=== PATIENT | female | born 1995 | race Caucasian/White ===

== ENCOUNTER 2021-08-03 11:48 | Outpatient (RCR) | payer OTHER, SELFPAY ==
[2021-08-03 12:15] LABS: Basophils Percent Auto 0.3 % (0.2-1.2); Eosinophils Absolute Auto 0.2 K/mm3 (0-0.3); Eosinophils Percent Auto 1.3 % (0-4.4); Hematocrit 38.3 % (37.0-47.0); Hemoglobin 12.1 g/dL (12.0-15.0); Immature Granulocyte Absolute 0.07 K/mm3 (0.00-0.031); Immature Granulocyte Percent A 0.6 % (0-0.5); Lymphocytes Absolute Auto 2.36 K/mm3 (0.9-3.2); Lymphocytes Percent Auto 19.7 % (18.3-44.2); Mean Corpuscular HGB Conc 31.6 g/dl (32-36); Mean Corpuscular Hemoglobin 26.3 pg (26-34); Mean Corpuscular Volume 83.3 fl (80-100); Monocytes Absolute Auto 0.8 K/mm3 (0.1-0.6); Monocytes Percent Auto 6.8 % (2.6-8.5); Neutrophils Absolute Auto 8.6 K/mm3 (1.3-6.7); Neutrophils Percent Auto 71.3 % (45.5-73.1); Platelet Count Result 292 k/mm3 (150-375); Red Cell Distribution Width 14.6 % (11.5-14.5)
[2021-08-03 13:15] LABS: HIV 1/2 Ab P24 Ag Result Negative (Negative)
[2021-08-04] MEDS: RHO(D) IMMUNE GLOBULIN 300 MCG/2 ML SYRINGE IM (12:16)
== END 2021-11-01 23:59 | disposition home or self-care (01) ==
LOC: ANHLAB 11:48
PROVIDERS: Visit Provider Obstetrics & Gynecology
DX: Z29.13 Encounter for prophylactic Rho(D) immune globulin (principal); O36.0190 Maternal care for anti-D [Rh] antibodies, unspecified trimester, not applicable or unspecified; Z3A.00 Weeks of gestation of pregnancy not specified
CPT/HCPCS: 36415; 85025; 85461; 86703; 90384; 96372; G0432; J2790

== ENCOUNTER 2021-08-03 14:02 | Outpatient (CLI) | payer OTHER, SELFPAY ==
--- NOTE | ~2021-08-03 | US_ITS ---
EXAMINATION: US OB follow up DATE: 08/03/2021 15:07 INDICATION: Assess growth and amniotic fluid index. Routine care during early third t ester of . TECHNIQUE: Real-time ultrasound of the pelvis was performed. The interpreting radiologist was not pre sent for the study. COMPARISON: None. FINDINGS: There is a single living fetus in each presentation. The placenta is posterior and not low-lying wit h caudal margin 6.4 cm from the internal cervical os. heart rate is 152 beats per minute (bpm). The amniotic fluid index is 21.1 cm, which is normal (5th%-95%: 9.4-22.8 cm at 28 weeks estimated g estational age). The following biometric data were obtained: BPD: 6.9 cm -> 27 weeks 5 days Head circumference: 25.9 cm -> 28 weeks 1 days Abdominal circumference: 23.7 cm -> 28 weeks 0 days Femur length: 5.6 cm -> 29 weeks 2 days These measurements are concordant. Head circumference to abdominal circumference ratio: 1.09 (normal range 1.01-1.21). Estimated weight: 1231 g (+/-) 185 g or 2 lbs. 11 oz. (+/-) 7 oz. IMPRESSION: 1. Single living fetus in breech presentation with heart rate of 152 bpm. 2. Gestational age by ultrasound of 28 weeks 2 day(s) +/- 2 week(s) 0 day(s) with ultrasound estimate d date of delivery (MANAN) of 10/24/2021. Estimated weight is 38th percentile by Hadlock criteria w hen 10/23/2021 is used as the MANAN. Please correlate with clinical information or earlier ultrasounds fo r most accurate MANAN. 3. Normal amniotic fluid index of 21.1 cm . Reviewed, dictated and finalized at location A. IMPRESSION: 1. Single living fetus in breech presentation with heart rate of 152 bpm. 2. Gestational age by ultrasound of 28 weeks 2 day(s) +/- 2 week(s) 0 day(s) wi th ultrasound estimated date of delivery (MANAN) of 10/24/2021. Estimated radha ght is 38th percentile by Hadlock criteria when 10/23/2021 is used as the MANAN. Pl ease correlate with clinical information or earlier ultrasounds for most accura te MANAN. 3. Normal amniotic fluid index of 21.1 cm .
[2021-10-10 12:31] VITALS: BP 122/65; PULSE 79
== END 2021-08-03 14:03 | disposition home or self-care (01) ==
LOC: ANHIMG 14:05
PROVIDERS: PCP Obstetrics & Gynecology; Visit Provider Obstetrics & Gynecology
DX: Z34.92 Encounter for supervision of normal pregnancy, unspecified, second trimester (principal); Z3A.27 27 weeks gestation of pregnancy
CPT/HCPCS: 36415; 76816; 85025; 85461; 86703; G0432

== ENCOUNTER 2021-08-04 10:31 | Outpatient (CLI) | payer OTHER, SELFPAY ==
[2021-08-04 12:05] LABS: Glucose 1 Hour PP 50gm Dose 144 mg/dL
== END 2021-08-04 10:32 | disposition home or self-care (01) ==
LOC: ANHLAB 10:33
PROVIDERS: PCP Obstetrics & Gynecology; Visit Provider Obstetrics & Gynecology
DX: Z34.90 Encounter for supervision of normal pregnancy, unspecified, unspecified trimester (principal); Z3A.00 Weeks of gestation of pregnancy not specified
CPT/HCPCS: 36415; 82947

== ENCOUNTER 2021-08-13 09:55 | Outpatient (CLI) | payer OTHER, SELFPAY ==
[2021-08-13 10:32] LABS: Glucose 3 Hour Gest 107 mg/dL (>/=140)
[2021-08-13 12:21] LABS: Glucose Fasting Gestational 107 mg/dL (>/=95)
[2021-08-13 13:03] LABS: Glucose 2 Hour Gest 175 mg/dL (>/= 155)
[2021-08-13 13:31] LABS: Glucose 1 Hour Gest 192 mg/dL (>/=180)
[2021-08-13 15:36] LABS: Glucose 3 Hour Gest 98 mg/dL (>/=140)
== END 2021-08-13 09:56 | disposition home or self-care (01) ==
LOC: ANHLAB 09:58
PROVIDERS: PCP Obstetrics & Gynecology; Visit Provider Obstetrics & Gynecology
DX: O99.810 Abnormal glucose complicating pregnancy (principal); Z3A.00 Weeks of gestation of pregnancy not specified
CPT/HCPCS: 36415; 82951; 82952

== ENCOUNTER 2021-08-20 13:00 | Outpatient (RCR) | payer OTHER, SELFPAY ==
[2021-08-16 13:14] VITALS: BMI 44.5
[2021-08-16 13:16] VITALS: BMI 44.5
== END 2021-09-12 12:12 | disposition home or self-care (01) ==
LOC: ANHDMC 13:00
PROVIDERS: PCP Obstetrics & Gynecology; Visit Provider Obstetrics & Gynecology
DX: O24.419 Gestational diabetes mellitus in pregnancy, unspecified control (principal); Z3A.00 Weeks of gestation of pregnancy not specified; Z71.3 Dietary counseling and surveillance; Z71.89 Other specified counseling
CPT/HCPCS: 97802; G0108

== ENCOUNTER 2021-10-10 12:10 | Outpatient (RCR) | payer OTHER, SELFPAY ==
[2021-09-05 12:30] VITALS: BP 119/73; PULSE 95
[2021-09-12 10:32] VITALS: BP 122/64; PULSE 88
[2021-09-19 12:18] VITALS: BP 119/59; PULSE 80
--- NOTE | 2021-09-19 12:58 | PC.NURSE ---
BPP 05/27
[2021-09-26 14:56] VITALS: BP 118/71; PULSE 81
[2021-10-03 12:04] VITALS: BP 110/68; PULSE 80
--- NOTE | 2021-10-03 12:24 | PC.NURSE ---
BPP 05/27
--- NOTE | ~2021-10-10 | US_ITS ---
EXAMINATION: US OB BPP wo non-stress EXAM DATE: 10/03/2021 12:24 INDICATION: Gestational diabetes. 3rd trimester. TECHNIQUE: Pelvic obstetrical transabdominal sonogram was performed by a technologist. There are mu ltiple grayscale and Doppler images available for interpretation. Comparison is made to prior examina tion from 09/26/2021. FINDINGS: There is a single fetus identified in posterior presentation with a heart rate of 145 beats per minute. The placenta is located in the posterior position. There is no sonographic evidence of retroplacental hemorrhage identified. BIOPHYSICAL PROFILE (performed by the technologist) breathing (30 sec sustained breathing in 30 minutes): 2 out of 2 movement (3 gross body movements in 30 minutes): 2 out of 2 tone (one episode of onsqnuj-guvbboncq-rcxryzo limb movement): 2 out of 2 Amniotic fluid pocket (2 cm): 2 out of 2 Total score: 8 out of 8 IMPRESSION: 1. Single fetus with heart rate of 145 bpm. 2. Normal biophysical profile score of 8 out of 8. Reviewed, dictated and finalized at location B. RMATION ASSURANCE ANALYST
--- NOTE | ~2021-10-10 | US_ITS ---
EXAMINATION: US OB follow up w BPP DATE: 09/26/2021 15:29 INDICATION: Maternal gestational diabetes. Assess growth and biophysical profile during third t rimester of . TECHNIQUE: Real-time ultrasound of the pelvis was performed. The interpreting radiologist was not pre sent for the study. COMPARISON: 09/19/2021 FINDINGS: There is a single living fetus in vertex presentation. The placenta is posterior. heart rate i s 126 beats per minute (bpm). The amniotic fluid index is 14.7 cm, which is normal (5th%-95%: 7.7-24. 9 cm at 36 weeks estimated gestational age) . The following biometric data were obtained: BPD: 9.1 cm -> 36 weeks 6 days Head circumference: 32.4 cm -> 36 weeks 5 days Abdominal circumference: 32.1 cm -> 36 weeks 0 days Femur length: 7.1 cm -> 36 weeks 1 days These measurements are concordant. Head circumference to abdominal circumference ratio: 1.01 (normal range 0.92-1.07). Estimated weight: 2885 g (+/-) 433 g, 6 lbs 6 oz (+/-) 15 oz Biophysical profile performed by the technologist: breathing (30 sec sustained breathing in 30 minutes): 2 out of 2 movement (3 gross body movements in 30 minutes: 2 out of 2 tone (one episode of gokkzyb-mgwjwytbe-dbvumio limb movement): 2 out of 2 Amniotic fluid pocket (2 cm): 2 out of 2 Total score: 8 out of 8 IMPRESSION: 1. Single living fetus in vertex presentation. 2. Normal amniotic fluid index of 14.7 cm 3. Biophysical profile 8 out of 8. 4. Estimated weight is 54th percentile by Hadlock criteria when 10/23/2021 is used as the estima kiana date of delivery (MANAN). Please correlate with clinical information or earlier ultrasounds for mos t accurate MANAN. Reviewed, dictated and finalized at location B. AGE CALLER IMPRESSION: 1. Single living fetus in vertex presentation. 2. Normal amniotic fluid index of 14.7 cm 3. Biophysical profile 8 out of 8. 4. Estimated weight is 54th percentile by Hadlock criteria when 10/23/2021 is used as the estimated date of delivery (MANAN). Please correlate with clinica l information or earlier ultrasounds for most accurate MANAN.
--- NOTE | ~2021-10-10 | US_ITS ---
EXAMINATION: US OB follow up w BPP DATE: 09/12/2021 10:43 INDICATION: Maternal gestational diabetes during third trimester . TECHNIQUE: Real-time pelvic ultrasound was performed. The interpreting radiologist was not present fo r the study. COMPARISON: None. FINDINGS: There is a single living fetus in vertex presentation. The placenta is posterior. heart rate i s 163 beats per minute (bpm). Normal amniotic fluid index of 13.9 cm (5th%-95%: 8.1-24.8 cm at 34 wee ks estimated gestational age) Biophysical profile performed by the technologist: breathing (30 sec sustained breathing in 30 minutes): 2 out of 2 movement (3 gross body movements in 30 minutes): 2 out of 2 tone (one episode of kbwnauj-yjpugcpxi-gotvkiz limb movement): 2 out of 2 Amniotic fluid pocket (2 cm): 2 out of 2 Total score: 8 out of 8 IMPRESSION: 1. Single living fetus in vertex presentation with heart rate of 163 bpm. 2. Biophysical profile 8 out of 8. 3. Normal amniotic fluid index of 13.9 cm. Reviewed, dictated and finalized at location A. TARIAN
--- NOTE | ~2021-10-10 | US_ITS ---
EXAMINATION: US OB BPP wo non-stress DATE: 09/19/2021 13:01 COMB TENDER INDICATION: Gestational diabetes TECHNIQUE: Real-time transabdominal obstetric ultrasound. FINDINGS: 09/12/2021 There is a single living fetus in vertex presentation. The placenta is posterior without placenta pr evia. cardiac activity and movement is noted with a heart rate of 139 beats per minute. Biophysical profile: breathin of 2 movement: 2 of 2 tone: 2 of 2 Amniotic flud pocket: 2 of 2 Total score: 8 of 8 IMPRESSION: 1. Single living intrauterine in vertex presentation. 2: Total biophysical profile score of 8/8. Reviewed, dictated and finalized at location B. TENDER
--- NOTE | ~2021-10-10 | US_ITS ---
EXAMINATION: US OB limited w BPP DATE: 10/10/2021 13:27 INDICATION: Gestational diabetes. Third trimester. TECHNIQUE: Real-time pelvic ultrasound was performed. COMPARISON: Ultrasound 10/03/2021 FINDINGS: There is a single living fetus in vertex presentation. The placenta is right posterior. heart rate is 135 beats per minute (bpm). The amniotic fluid index is 16.1 cm, which is normal. Biophysical profile performed by the technologist: breathing (30 sec sustained breathing in 30 minutes): 2 out of 2 movement (3 gross body movements in 30 minutes): 2 out of 2 tone (one episode of plpgkro-xksauvuky-szbnxeh limb movement): 2 out of 2 Amniotic fluid pocket (2 cm): 2 out of 2 Total score: 8 out of 8 IMPRESSION: 1. Single living fetus in vertex presentation. 2. Biophysical profile 8 out of 8. Reviewed, dictated and finalized at location A. P PRESS OPERATOR
--- NOTE | ~2021-10-10 | US_ITS ---
EXAMINATION: US OB BPP wo non-stress EXAM DATE: 09/05/2021 12:29 INDICATION: Gestational diabetes. 3rd trimester. TECHNIQUE: Pelvic obstetrical transabdominal sonogram was performed by a technologist. There are mu ltiple grayscale and Doppler images available for interpretation. There are no earlier studies of th is gestation for comparison. FINDINGS: There is a single fetus identified in vertex presentation with a heart rate of 138 beats pe r minute. The placenta is located in the posterior position. There is no sonographic evidence of ret roplacental hemorrhage identified. BIOPHYSICAL PROFILE (performed by the technologist) breathing (30 sec sustained breathing in 30 minutes): 2 out of 2 movement (3 gross body movements in 30 minutes): 2 out of 2 tone (one episode of xrfmqxx-obynxrvnt-bzxdmbv limb movement): 2 out of 2 Amniotic fluid pocket (2 cm): 2 out of 2 Total score: 8 out of 8 IMPRESSION: 1. Single fetus with heart rate of 138 bpm. 2. Normal biophysical profile score of 8 out of 8. Reviewed, dictated and finalized at location B. NG INSPECTOR
[2021-10-10 12:43] VITALS: BP 122/65; PULSE 80
--- NOTE | 2021-10-10 13:33 | PC.NURSE ---
BPP 8, [place] 16.1
== END 2021-11-01 09:49 | disposition home or self-care (01) ==
LOC: ANHOBOP 12:10
PROVIDERS: PCP Obstetrics & Gynecology; Visit Provider Obstetrics & Gynecology
DX: O24.419 Gestational diabetes mellitus in pregnancy, unspecified control (principal); Z3A.33 33 weeks gestation of pregnancy; Z3A.34 34 weeks gestation of pregnancy; Z3A.35 35 weeks gestation of pregnancy; Z3A.36 36 weeks gestation of pregnancy; Z3A.37 37 weeks gestation of pregnancy; Z3A.38 38 weeks gestation of pregnancy
CPT/HCPCS: 59025; 76815; 76816; 76819

== ENCOUNTER 2021-10-16 17:04 | Inpatient (IN) | payer OTHER, SELFPAY ==
[2021-10-16] VITALS (10 sets, daily range): BP systolic 110–126; BP diastolic 53–90; PULSE 72–86; RESP 18; TEMP 36.6; BMI 45.5
--- NOTE | 2021-10-16 17:46 | LDADM ---
This patient, Abigail Camarena, was admitted to Labor/Delivery/Recovery 108 on 10/16/21 at 17:04. Plans for labor, pain management and were discussed with patient. Patient/family oriented to hospital policies and general routines including ID bracelet, bed and alarms, visiting hours, pain management, procedures, bathroom and other care routines, personal items, smoking policy, room service/diet and guest tray routines, security routines, and visiting hours. Patient/Family are encouraged to report perceived risks to care and to ask questions if they do not understand what they are told or what they should do. See OBIX for further documentation.
[2021-10-16 17:59] LABS: Basophils Percent Auto 0.2 % (0.2-1.2); Eosinophils Percent Auto 0.4 % (0-4.4); Hematocrit 38.7 % (37.0-47.0); Hemoglobin 12.5 g/dL (12.0-15.0); Immature Granulocyte Absolute 0.06 K/mm3 (0.00-0.031); Immature Granulocyte Percent A 0.5 % (0-0.5); Lymphocytes Absolute Auto 2.18 K/mm3 (0.9-3.2); Lymphocytes Percent Auto 19.8 % (18.3-44.2); Mean Corpuscular HGB Conc 32.3 g/dl (32-36); Mean Corpuscular Hemoglobin 25.7 pg (26-34); Mean Corpuscular Volume 79.6 fl (80-100); Mean Platelet Volume 9.6 fl (7.4-10.4); Monocytes Absolute Auto 0.7 K/mm3 (0.1-0.6); Monocytes Percent Auto 6.7 % (2.6-8.5); Neutrophils Percent Auto 72.4 % (45.5-73.1); Nucleated Red Blood Cells Perc 0.2 % (0.0-0.2); Platelet Count Result 316 k/mm3 (150-375); Red Blood Count 4.86 M/mm3 (4.2-5.4)
[2021-10-16] MEDS: DINOPROSTONE 10 MG VAG INSERT VAGINAL (18:25)
[2021-10-16 18:57] LABS: Glucose Point of Care 85 mg/dl (65-105)
[2021-10-16] MEDS: ACETAMINOPHEN 500 MG TABLET 1000 MG PO (23:16)
[2021-10-17] VITALS (74 sets, daily range): BP systolic 86–140; BP diastolic 42–98; PULSE 71–112; RESP 16–20; TEMP 36.2–37.2; O2SAT 95–100
[2021-10-17 00:11] LABS: Glucose Point of Care 158 mg/dl (65-105)
[2021-10-17 06:00] LABS: Glucose Point of Care 91 mg/dl (65-105)
--- NOTE | 2021-10-17 06:20 | WPDANESEPP ---
Anes - Eval Pre Procedure Procedure: labor epidural Date/Time: 10/17/21 06:20 Surgeon: hazel Preop Diagnosis: pain during labor Pre Op Diagnosis: Induction of Labor Patient Data Age: 26 Gender: F Height: 1.68 m Weight: 128 kg Last Vital Signs Temp 36.8 C 10/17/21 04:54 Pulse 77 10/17/21 04:54 Resp 18 10/16/21 18:47 BP 112/63 10/17/21 04:54 Allergies Allergy/AdvReac Type Severity Reaction Status Date / Time No Known Allergies Allergy Verified 10/10/21 11:06 Home Medications Medication Instructions Recorded Confirmed Type aspirin 81 mg chewable tablet 81 mg PO DAILY 07/04/21 10/16/21 History docosahexaenoic acid 200 mg capsule 1 mg PO DAILY 07/04/21 10/16/21 History metformin 500 mg tablet 1,000 mg PO DAILY #60 tablet 09/17/21 10/16/21 Rx Laboratory Tests 10/16/21 10/16/21 10/16/21 17:42 17:42 17:42 WBC 11.0 K/mm3 H K/mm3 (4.5-10.0) RBC 4.86 M/mm3 M/mm3 (4.2-5.4) Hgb 12.5 g/dL g/dL (12.0-15.0) Hct 38.7 % % (37.0-47.0) MCV 79.6 fl L fl (80-100) MCH 25.7 pg L pg (26-34) MCHC 32.3 g/dl g/dl (32-36) RDW 15.0 % H % (11.5-14.5) Plt Count 316 k/mm3 k/mm3 (150-375) MPV 9.6 fl fl (7.4-10.4) Immature Gran % (Auto) 0.5 % % (0-0.5) Neut % (Auto) 72.4 % % (45.5-73.1) Lymph % (Auto) 19.8 % % (18.3-44.2) [place] % (Auto) 6.7 % % (2.6-8.5) Eos % (Auto) 0.4 % % (0-4.4) Baso % (Auto) 0.2 % % (0.2-1.2) Lymph # (Auto) 2.18 K/mm3 K/mm3 (0.9-3.2) [place] # (Auto) 0.7 K/mm3 H K/mm3 (0.1-0.6) Eos # (Auto) 0.0 K/mm3 K/mm3 (0-0.3) Baso # (Auto) 0.0 K/mm3 K/mm3 (0.0-0.1) Abs Immat Gran (auto) 0.06 K/mm3 H K/mm3 (0.00-0.031) Absolute Neuts (auto) 8.0 K/mm3 H K/mm3 (1.3-6.7) Absolute Nucleated RBC 0.0 K/mm3 K/mm3 (0.0-0.012) Nucleated RBC % 0.2 % % (0.0-0.2) POC Capillary Glucose RPR Pending Blood Type B Negative Antibody Screen Positive Antibody Identification Passive Due to RH Imm Glob Antigen Identification Cancelled RENE, IgG Interpret Not Performed RENE, Poly Interpret Neg RENE, Complement Interp Not Performed 10/16/21 10/17/21 10/17/21 18:54 00:05 05:57 WBC RBC Hgb Hct MCV MCH MCHC RDW Plt Count MPV Immature Gran % (Auto) Neut % (Auto) Lymph % (Auto) [place] % (Auto) Eos % (Auto) Baso % (Auto) Lymph # (Auto) [place] # (Auto) Eos # (Auto) Baso # (Auto) Abs Immat Gran (auto) Absolute Neuts (auto) Absolute Nucleated RBC Nucleated RBC % POC Capillary Glucose 85 mg/dl mg/dl 158 mg/dl H mg/dl 91 mg/dl mg/dl (65-105) (65-105) (65-105) RPR Blood Type Antibody Screen Antibody Identification Antigen Identification RENE, IgG Interpret RENE, Poly Interpret RENE, Complement Interp Patient hx anesthesia problems: none Family hx anesthesia problems: none Results Review: All pre-operative results and documents have been reviewed as part of the pre-operative evaluation. [facility] Past Medical History Medical History (Updated 10/17/21 @ 06:21 by Keke Feliz CRNA) Gestational diabetes mellitus (GDM) affecting second Morbid obesity with BMI of 40.0-44.9, adult Vaginal delivery x1 Family History Family History Mother Hypertension Thyroid disorder Grandparent Breast can
[2021-10-17] MEDS: OXYTOCIN 30 UNITS/NS 500 ML 30 UNITS/500 ML BAG IV CONT (07:57)
[2021-10-17] MEDS: LACTATED RINGERS 1,000 ML 125 ML IV CONT ×2 (07:57→12:28)
--- NOTE | 2021-10-17 08:36 | PM.IMHP ---
H&P: HPI History of Present Illness Date/Time: 10/17/21 08:36 Patient is a 26-year-old LMP 01/16/2021 currently 39 weeks 1 day gestation with MANAN 10/23/2021 who presented to Labor and delivery for scheduled induction of labor secondary to gestational diabetes. Patient was diagnosed with gestational diabetes and started on Metformin. Patient also has a history of preeclampsia or in previous and is currently on low-dose aspirin. In general, she reports feeling well. Denies any vaginal bleeding or leakage of fluid. Reports occasional contractions and good movement. Chief Complaint: Intrauterine at 39w gestation Gestational diabetes Obesity Review of Systems Review of Systems: All systems reviewed & are unremarkable except as noted in HPI and below Constitutional: Constitutional: Reports as per HPI, Reports no additional constitutional complaints, Denies chills, Denies fever(s), Denies headache(s) and Denies night sweats Eyes: Eyes: Reports as per HPI and Reports no additional eye complaints ENT: Reports system reviewed and no additional complaints, except as documented, Reports as per HPI, Reports Normal hearing present and Denies headache(s) Cardiovascular: Cardiovascular: Reports as per HPI, Reports no additional cardiovascular complaints, Denies chest pain and Denies dyspnea Respiratory: Respiratory: Reports as per HPI, Reports no additional respiratory complaints, Denies cough and Denies dyspnea Gastrointestinal: Gastrointestinal: Reports as per HPI, Reports no additional gastrointestinal complaints, Denies abdominal pain, Denies change in bowel habits, Denies change in stool character, Denies nausea and Denies vomiting Genitourinary: Genitourinary: Reports no additional female genitourinary complaints, Reports as per HPI, Denies abnormal vaginal bleeding, Denies genital lesions, Denies hot flashes, Denies dyspareunia, Denies pelvic pain, Denies sexual dysfunction, Denies urinary incontinence, Denies vaginal discharge, Denies vaginal dryness and Denies vaginal odor Musculoskeletal: Musculoskeletal: Reports no additional musculoskeletal complaints and Reports as per HPI Integumentary/Breasts: Skin/Breast: Reports system reviewed and no additional complaints, except as docu, Reports as per HPI, Denies breast pain and Denies nipple discharge Neurologic: Reports system reviewed and no additional complaints, except as documented, Reports as per HPI, Reports Normal hearing present and Denies headache(s) Psychiatric: Psychiatric: Reports no additional psychiatric complaints, Reports as per HPI, Denies anxiety and Denies depression Endocrine: Endocrine: Reports no additional endocrine complaints and Reports as per HPI Hematologic/Lymphatic: Hematologic/Lymphatic: Reports no additional hematologic/lymphatic complaints and Reports as per HPI Allergic/Immunologic: Allergic/Immunologic: Reports no additional allergic/immunologic complaints and Reports as per HPI [facility] Past Medical History Medical History Gestational diabetes mellitus (GDM) affecting second Morbid obesity with BMI of 40.0-44.9, adult Vaginal delivery x1 Family History Family History Mother Hypertension Thyroid disorder Grandparent Breast cancer Throat cancer Alcoholism Diabetes mellitus Social History Social History Smoking status: Never smoker Alcohol intake: never Substance use: never Spiritual care concerns: No Meds Home Medications and Allergies Home Medications Medication Instructions Recorded Confirmed Type aspirin 81 mg chewable tablet 81 mg PO DAILY 07/04/21 10/16/21 History docosahexaenoic acid 200 mg capsule 1 mg PO DAILY 07/04/21 10/16/21 History metformin 500 mg tablet 1,000 mg PO DAILY #60 tablet 09/17/21 10/16/21 Rx Allergies
[2021-10-17] MEDS: fentaNYL CITRATE INJ (*CRX) 100 MCG/2 ML VIAL 50 MCG IV PUSH ×2 (09:09→10:59)
[2021-10-17 09:58] LABS: Glucose Point of Care 88 mg/dl (65-105)
[2021-10-17] MEDS: fentaNYL CITRATE INJ (*CRX) 100 MCG/2 ML VIAL IV PUSH (12:03)
--- NOTE | 2021-10-17 12:44 | WPDHPUPDATE1 ---
History and Physical Update Update Date/Time: 10/17/21 12:44 History and Physical has been reviewed, including an updated exam of the patient. There are NO changes in the patient's condition. Risks, benefits, and alternatives have been discussed and questions answered. Patient agrees to proceed with procedure.
[2021-10-17 13:06] LABS: Rapid Plasma Reagin Non-Reactive (NonReactive)
[2021-10-17 14:08] LABS: Glucose Point of Care 92 mg/dl (65-105)
[2021-10-17] MEDS: OXYTOCIN 30 UNITS/NS 500 ML 30 UNITS/500 ML BAG 125 UNITS IV CONT (15:26)
--- NOTE | 2021-10-17 16:45 | P.PCNOB_ITS ---
OB - Delivery Note Procedure Delivery date: 10/17/21 Procedure: Patient is 26-year-old now who presented to labor and delivery on 10/16/2021 at 39 weeks gestation for a scheduled induction of labor secondary to gestational diabetes. Patient was admitted to labor and delivery where induction of labor was begun with Cervidil. Initial cervical exam was approximately 2 cm dilated. Cervidil remained in place for approximately 12 hours after which time was removed. Pitocin was started for labor augmentation. Artificial rupture of membranes was performed at 8:21 am. Clear amniotic fluid was noted. Patient was approximately 3 cm dilated at this time. Pitocin was continuously titrated throughout the morning and afternoon. Patient became uncomfortable and requested an epidural for pain management which was placed without difficulty. An IUPC was also placed for enhanced monitoring. Patient made progressive cervical change and was noted to be fully dilated at 1:36 p.m. Patient was encouraged to push and found to be pushing well. She was prepped and draped for delivery. At 2:40 p.m., patient delivered head atraumatically without difficulty in OLIVE presentation. Occiput restituted to maternal right side. With subsequent push, the 's neck, shoulders, and rest of body delivered without difficulty. The infant was crying spontaneously. 's nose and mouth were suctioned with bulb suction. The was placed on maternal abdomen where care was assumed by waiting nursing staff. Delayed cord clamp was performed for approximately 60 seconds. The infant voided spontaneously. The cord was clamped and cut. A segment of cord was collected for cord gases. Cord blood was collected. The placenta was delivered spontaneously and intact. Uterine fundus was noted to be firm with massage. On inspection, a first-degree perineal laceration was noted. This laceration was repaired with 2-0 Vicryl in the usual fashion. Excellent hemostasis was noted. Estimated blood loss for entire delivery was 150 cc. The infant was a live-born male , Apgars 9 and 9, weighing at 7 lbs 5 oz. Both mother and baby doing well at end of delivery. events: Gestational Diabetes and Labor Induction Induction method: per cervidil protocol Delivery augmentation: rupture of membranes and pitocin Delivery monitor: external FHT, external uterine and internal uterine Route of delivery: Laceration Description: Perineal - 1st Degree Delivery repair: vicryl (2-0 vicryl) Specimen: Yes (placenta and cord, cord blood and cord gases) Quantitative Blood Loss (ml): 150 Anesthesia type: Epidural Disposition: floor Complications: No immediate complications [place] Baby Date of : 10/17/21 Time of : 14:40 Weeks of gestation at delivery: 39 (39.1) Infant gender: Male Weight (pounds): 7 Weight (ounces): 5 presentation: vertex position: Right Occiput Anterior Placenta delivery description: Spontaneous cord vessel description: 3 Vessels and Delayed Cord Clamping score one minute: 9 score five minutes: 9 AMG Delivery Billing Delivery Delivery: Delivery Charge
[2021-10-17] MEDS: WITCH HAZEL 40 PADS 1 PAD TOPICAL (17:20)
[2021-10-17] MEDS: BENZOCAINE 20% AER SPR (*SP) 56 GM CAN 1 SPRAY TOPICAL (17:20)
--- NOTE | 2021-10-17 17:59 | OBPPTRN ---
Patient transferred to post room #279 via wheelchair. Support person present. Oriented to unit, room, information board, rooming in, admission packet and security measures. Patient verbalizes understanding.
[2021-10-17] MEDS: IBUPROFEN 600 MG TABLET PO (19:39)
[2021-10-18 03:20] VITALS: BP 112/73; PULSE 86; RESP 16; TEMP 36.4; O2SAT 98
[2021-10-18] MEDS: IBUPROFEN 600 MG TABLET PO ×3 (03:28→17:25)
[2021-10-18 04:55] LABS: Hematocrit 35.3 % (37.0-47.0); Hemoglobin 11.3 g/dL (12.0-15.0)
[2021-10-18] MEDS: MULTIVIT/MIN/PREN/FOL AC/IRON TABLET 1 TAB PO (07:29)
[2021-10-18] MEDS: DOCUSATE SODIUM 100 MG CAPSULE PO (07:29)
[2021-10-18 08:00] VITALS: BP 105/64; PULSE 66; RESP 18; TEMP 36.3; O2SAT 98
--- NOTE | 2021-10-18 08:30 | PC.NURSE ---
Consult with pt., mother reports she is attempting to breast a few minutes, then supplementing due to infant not latching. Mother reports she had difficulties with first child and pumped and bottle fed for a few months then switched to formula. Mother states she has inverted nipples that do not stay firm, she has the nipple shield and latch assist at bedside. Offered to assist with latch next feeding. Mother states she has not decided if she will continue to attempt or pump and bottle feed. Reviewed breast pump care and usage, pumping schedule, nipple care, and collection and storage of breast milk. Encouraged [id number], breast massage and manual expression to stimulate supply. Requested mother call out next feeding to assess flange size. Nipple care reviewed of lanolin before pumping, warm compresses/massage a few minutes before. Discussed colostrum vs milk supply and mother may not see more than a few drops the first few days, milk should transition in by day 3 and she may see more volume pumped per session.
[2021-10-18 11:54] VITALS: BP 106/65; PULSE 87; RESP 18; TEMP 36.5; O2SAT 98
--- NOTE | 2021-10-18 12:13 | PM.OBPNVD ---
OB - PN: Subj Subjective Date/time seen: 10/18/21 12:13 Patient doing well. Reports feeling tired. Pain well controlled with medication. Minimal-moderate lochia. Ambulating without difficulty. OB - PN: Obj Data Labs CBC & Chem 7: 10/18/21 03:32 Labs: Laboratory Results - last 24 hr 10/16/21 10/17/21 10/18/21 17:42 14:05 03:32 Hgb 11.3 L Hct 35.3 L POC Capillary Glucose 92 RPR Non-reactive OB - PN A/P Assessment and Plan (1) Normal spontaneous vaginal delivery: Code(s): O80 - Encounter for full-term uncomplicated delivery Status: Acute Assessment and Plan: PPD#1 doing well continue routine care pt would like to be dc'd home pending circ and clearance no BP issues currently, however, has hx of Pre-E in prior emergency precautions reviewed pt and inquiring about taking BP at home offered to try sending in Rx for BP cuff, will attempt to do so all questions and concerns addressed may f/u in office in approx. 4 weeks for visit or sooner if necessary Time Spent With Patient Time: Total time spent is greater than 50% in coordination of care (as documented) at patient's floor/unit and/or counseling patient: Exam Const: General: cooperative, healthy appearing, comfortable and no acute distress GI: Inspection: non-distended and obesity GI Palp: Yes Soft to palpation and No Tenderness to palpation present (GI) Other: unable to palpate fundus due to body habitus Extrem: Right lower extremity: no edema Left lower extremity: no edema Other: no calf tenderness Psych: Appearance: grossly normal Mental Status: mental status grossly normal
--- NOTE | 2021-10-18 14:27 | PC.NURSE ---
Patient instructed to view the discharge video Mother & Baby Care, The First Two Weeks online. Patient was given the opportunity and encouraged to ask questions. Patient verbalized understanding of information shared and has been given the mother/baby guide for home reference.
--- NOTE | 2021-10-18 15:01 | PM.OBDSVD ---
DS: Admitting Diagnosis Discharge Date 10/18/21 Admitting Diagnosis Intrauterine at 39 weeks Gestational diabetes OB - DS: Summary OB Procedures : None OB Procedures Intrapartum: Spontaneous Vag Delivery OB Procedures: : None Time Spent with Patient Time attestation: Total time spent providing and/or coordinating discharge services: DS: Data Data Completed and Pending Labs on day of discharge: Labs from last 24 hours 10/18/21 03:32 Hgb 11.3 L Hct 35.3 L Discharge Plan Discharge Attending physician on discharge: Criss Summers Discharging Clinician: Criss Summers Anticipated Discharge Date/Time: 10/18/21 15:01 Patient Disposition: Home, Self-Care Activity: as tolerated and pelvic rest Diet: regular Discharge Instructions: Call office ([phone]) to schedule a visit in 4-6 weeks. You may take Ibuprofen 600mg every 6 hours as needed for pain. Pain medication may make you constipated. It may be helpful to take an [id number]-mtyvexx stool softener, such as Colace and/or Senokot, along with the pain medication to help lessen constipation. Call office or go to ED for pain not controlled with medication, headache, chest pain, shortness of breath, fever, chills, persistent nausea or vomiting, severe abdominal pain, heavy vaginal bleeding >2 pads/hour, foul vaginal discharge or odor, or problems with your breasts. Patient Instructions: Antibiotic Form Stand Alone Forms: General Discharge Information Follow-up/Referrals: Felicity Da Silva MD [Physician] - Discharge Medications: Continued DHA 200 mg capsule 1 mg PO DAILY RF: 0 (DME) blood pressure test kit-large Kit See Rx Instructions .Route Qty: 1 RF: 0 Discontinued aspirin 81 mg tablet,chewable 81 mg PO DAILY RF: 0 metformin 500 mg tablet 1,000 mg PO DAILY Qty: 60 RF: 0 Date of admission: 10/16/21 17:04 Primary Care Provider: PHYSICIAN,PATROL SERGEANT Admitting Provider: Felicity Da Silva Attending physician on admission: Felicity Da Silva Condition: Stable
== END 2021-10-18 17:55 | disposition home or self-care (01) | DRG 807 ==
LOC: ANHOB2 10-18 15:05 → ANHLDR 10-22 08:45 → ANHOB2 10-22 08:45
PROVIDERS: Obstetrics & Gynecology; Admitting Provider Student in an Organized Health Care Education/Training Program; Visit Provider Student in an Organized Health Care Education/Training Program
DX: O24.429 Gestational diabetes mellitus in childbirth, unspecified control (principal); Z37.0 Single live birth; Z3A.39 39 weeks gestation of pregnancy; O70.0 First degree perineal laceration during delivery; O36.8330 Maternal care for abnormalities of the fetal heart rate or rhythm, third trimester, not applicable or unspecified; O99.214 Obesity complicating childbirth; E66.01 Morbid (severe) obesity due to excess calories
CPT/HCPCS: 36415; 82948; 85014; 85018; 85025; 86592; 86850; 86880; 86900; 86901; 86902; 88307; A9270; J2590; J3010; J7120